=== PATIENT | male | born 1950 | race Caucasian/White ===

== ENCOUNTER → 2019-05-24 | Outpatient (CLI) | payer MEDICARE, OTHER ==
[~2019-05-24] MED LIST: ALOG25TA2 PO; AMLO5TAB10 PO; ASPI-630 PO; DULO30CA2 PO; INSU100V8 SQ; LOSA-73 PO; METO-239 PO
[2019-05-24 14:34] LABS: BASO % 1 % (0-3); EOS # 0.8 x10^3/uL (0.0-0.7); EOS % 11 % (0-3); HEMATOCRIT 41.1 % (39.0-53.0); HEMOGLOBIN 13.4 g/dL (13.0-17.5); LYMPH # 1.4 x10^3/uL (1.0-4.8); LYMPH % 18 % (24-48); MEAN CORPUSCULAR HEMOGLOBIN 26 pg (25-35); MEAN CORPUSCULAR HGB CONC 33 g/dL (31-37); MEAN CORPUSCULAR VOLUME 80 fL (79-100); MONO # 0.6 x10^3/uL (0.0-1.1); MONO % 9 % (0-9); NEUT # 4.6 x10^3/uL (1.8-7.7); NEUT % 61 % (31-73); PLATELET COUNT 344 x10^3/uL (140-400); RED BLOOD COUNT 5.11 x10^6/uL (4.30-5.70); RED CELL DISTRIBUTION WIDTH 14.8 % (11.5-14.5); WHITE BLOOD COUNT 7.5 x10^3/uL (4.0-11.0)
[2019-05-24 15:18] LABS: ALBUMIN 3.8 g/dL (3.4-5.0); ALBUMIN/GLOBULIN RATIO 1.2 (1.0-1.7); CALCIUM 9.2 mg/dL (8.5-10.1); CREATININE 1.1 mg/dL (0.7-1.3); GFR 66.8; TOTAL BILIRUBIN 0.4 mg/dL (0.2-1.0); TOTAL PROTEIN 6.9 g/dL (6.4-8.2)
== END | disposition home or self-care (01) ==
LOC: SURGPAT 13:14
PROVIDERS: ATTEND Neurological Surgery
DX: Z01.818 Encounter for other preprocedural examination (principal)
CPT/HCPCS: 36415; 80053; 85025; 87641

== ENCOUNTER 2019-05-26 10:32 | Observation (INO) | payer MEDICARE, OTHER ==
--- NOTE | 2019-05-25 16:19 | HP ---
ADMIT DATE: 05/20/2019. DATE OF SURGERY: 05/26/2019. HISTORY OF PRESENT ILLNESS: The patient is a pleasant 69-year-old who has difficulty with low back pain on the right side and pain that radiates into his right anterior thigh. The problem has been present for 1-1/2 years. It began spontaneously. He rates his pain as a 7/10. Standing and walking or lying flat increases pain. He says a TENS unit helps him. Last March he underwent physical therapy at the [facility] and felt nothing was helpful. He also had epidural steroid injections, which were not helpful as well as an ablation at the [facility], which he said was helpful for about 3 months. PAST MEDICAL HISTORY: Arthritis, hypertension, kidney stones, sleep apnea, diabetes. PAST SURGICAL HISTORY: Spinal cord stimulator in 2019 and ablation in 2018. Laminectomy in 1981 and gastric band in 2011. FAMILY HISTORY: Diabetes and heart disease. 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 . Rarely exercises. Denies tobacco use. Drinks alcohol 1-2 times per month. ALLERGIES: LISINOPRIL. CURRENT MEDICATIONS: Buspirone, insulin, duloxetine, naproxen, amlodipine besylate, losartan, potassium, ropinirole, alogliptin, benzonatate, and tizanidine. REVIEW OF SYSTEMS: A 12-point review of systems was obtained and is noncontributory except for that mentioned above. PHYSICAL EXAMINATION: NEUROSURGERY EXAMINATION: GENERAL APPEARANCE: Alert, pleasant, no acute distress. HEAD: Normocephalic and atraumatic. SKIN: Warm and dry. MUSCULOSKELETAL: Lumbar paraspinal muscle bulk is normal, restricted range of motion of the lumbar spine, [id number] tenderness of the lower lumbar spine with palpation, normal range of motion of the lower extremities bilaterally. EXTREMITIES: No clubbing, cyanosis or edema. NEUROLOGIC: Alert and oriented x 3, normal recent and remote memory. Strength 5/5 in bilateral lower extremities except for the right quadriceps, which is a 4+/5. Sensory was intact to light touch in bilateral lower extremities, reflexes were present and symmetric in lower extremities bilaterally, negative straight leg raising bilaterally, normal gait. IMAGING: I reviewed a lumbar MRI scan from 11/17/2018. On that study at L2-L3, there is a moderately severe lumbar spinal stenosis at L3-L4, there is severe central canal stenosis. At L4-L5, there is a right lateral recess and subarticular narrowing along with an element of foraminal narrowing. ASSESSMENT: Spinal stenosis, lumbar region with neurogenic claudication. PLAN: The patient has neurogenic claudication from spinal stenosis at L2-L3 and L3-L4. He has right-sided canal narrowing at L4-L5, which does extend in the proximal foramen. At this point, my feeling is that the symptoms most accurately measure stenosis and nerve root compression at L2-L3 and L3-L4. I have recommended a right direct laminectomy at those levels. I explained to him in the future, he may require further surgery if the problems at L4-L5 become symptomatic. He understands. He understands the surgery including the technique, risk and expected postoperative course. He would like to go ahead with surgery. We will make the arrangements. CURTIS WAGNER MD DR: KIERA/hattie JOB#: [id number] / [id number] [place]
[~2019-05-26] VITALS: Ht 188 cm; Wt 128.6 kg
[~2019-05-26 10:32] MED LIST changes: +BACITRACIN 50,000 UNIT in IV NORMAL SALINE 1000ML BAG 1,000 ML IRR ONE; +BUPIVACAINE-EPI 0.5%-1:200000 MPF 30 ML VIAL. ONE; +GELATIN SPONGE SIZE 100. ONE; +HYDROmorphone 2 MG/ML VIAL IV PRN; +IV RINGERS,LACTATED 1000ML 1,000 ML IV SCH; +KETOROLAC 60 MG/2 ML VIAL. ONE; +MORPHINE SULFATE 2 MG/ML VIAL. IV PRN; +ONDANSETRON PF 4 MG/2 ML VIAL. IV PRN; +PROCHLORPERAZINE 10 MG/2 ML VIAL. IV PRN; +THROMBIN TOPICAL 20,000 UNIT SPRAY.SYRN KIT TP ONE; +ceFAZolin SODIUM 3 GM in IV DEXTROSE 5% 100ML 100 ML IV PRN; +fentaNYL PF VIAL 100 MCG/2 ML VIAL IV PRN
[2019-05-26] MEDS ORDERED: INSULIN LISPRO 100 UNIT/ML 3ML VIAL for OP,RR ONLY. SQ PRN (10:45)
[2019-05-26] MEDS ORDERED: PROPOFOL 100 ML IV ONE (10:47)
[2019-05-26] MEDS ORDERED: GLYCOPYRROLATE 1 MG/5 ML VIAL. ONE (10:53)
[2019-05-26] MEDS ORDERED: NEOSTIGMINE METHYLSULFATE 5 MG/5 ML SYRINGE. ONE (10:54)
[2019-05-26] MEDS ORDERED: MIDAZOLAM HCL/PF 2 MG/2 ML VIAL. ONE (10:54)
[2019-05-26] MEDS ORDERED: REMIFENTANIL 2 MG VIAL. IV ONE (10:54)
[2019-05-26] MEDS ORDERED: fentaNYL PF VIAL 100 MCG/2 ML VIAL ONE (10:54)
[2019-05-26] MEDS ORDERED: ROCURONIUM 50 MG/5 ML VIAL. ONE (10:54)
[2019-05-26] MEDS ORDERED: PHENYLEPHRINE 10 MG/ML VIAL. ONE ×2 (10:57→15:30)
[2019-05-26] MEDS ORDERED: DEXAMETHASONE SOD PHOS 4 MG/ML VIAL ONE (10:59)
[2019-05-26] MEDS ORDERED: PROPOFOL 20 ML IV ONE (10:59)
[2019-05-26] MEDS ORDERED: ONDANSETRON PF 4 MG/2 ML VIAL. ONE (10:59)
[2019-05-26] MEDS ORDERED: LIDOCAINE 2% PF 5 ML VIAL. ONE (10:59)
[2019-05-26] MEDS ORDERED: GELATIN SPONGE SIZE 100. TP ONE (13:21)
[2019-05-26] MEDS ORDERED: KETOROLAC 60 MG/2 ML VIAL. INJ ONE (13:21)
[2019-05-26] MEDS ORDERED: THROMBIN TOPICAL 20,000 UNIT SPRAY.SYRN KIT TP ONE (13:21)
[2019-05-26] MEDS ORDERED: BUPIVACAINE-EPI 0.5%-1:200000 MPF 30 ML VIAL. INJ ONE (13:21)
[2019-05-26] MEDS ORDERED: POTASSIUM CL 20MEQ-0.45% NACL 1,000 ML IV SCH (14:40)
[2019-05-26] MEDS ORDERED: MAGNESIUM HYDROXIDE 2,400 MG/30 ML ORAL.SUSP. PO PRN (14:45)
[2019-05-26] MEDS ORDERED: ACETAMINOPHEN 325 MG TABLET. PO PRN (14:45)
[2019-05-26] MEDS ORDERED: CALCIUM CARBONATE 500 MG TAB.CHEW PO PRN (14:45)
[2019-05-26] MEDS ORDERED: diphenhydrAMINE 50 MG/ML VIAL IV PRN (14:45)
[2019-05-26] MEDS ORDERED: MAG HYDROX/ALUMINUM HYD/SIMETH 30 ML ORAL.SUSP PO PRN (14:45)
[2019-05-26] MEDS ORDERED: NALOXONE 0.4 MG/ML VIAL. IV PRN (14:45)
[2019-05-26] MEDS ORDERED: METHOCARBAMOL 750 MG TABLET PO PRN (14:45)
[2019-05-26] MEDS ORDERED: fentaNYL PF VIAL 100 MCG/2 ML VIAL IVP PRN (14:45)
[2019-05-26] MEDS ORDERED: diphenhydrAMINE HCL 25 MG CAPSULE PO PRN (14:45)
[2019-05-26] MEDS ORDERED: DEXTROSE 50% 25 GM / 50ML DISP.SYRIN. IV PRN (14:45)
[2019-05-26] MEDS ORDERED: 0.9 % SODIUM CHLORIDE 10 ML DISP.SYRIN. IV PRN (14:45)
[2019-05-26] MEDS ORDERED: REMIFENTANIL 1 MG VIAL. IV ONE (15:22)
[2019-05-26] MEDS ORDERED: PROPOFOL 50 ML IV ONE (15:40)
[2019-05-26] MEDS: HYDROcodone/APAP 5/325MG 1 TAB TABLET PO PRN (18:28)
[2019-05-26 19:00] VITALS: BP 138/98
[2019-05-26] MEDS: DOCUSATE SODIUM 100 MG CAPSULE. PO SCH (20:17)
[2019-05-26] MEDS ORDERED: INSULIN GLARGINE SYRINGE. SQ SCH (21:00)
[2019-05-26 23:00] VITALS: BP 134/80
[2019-05-27] MEDS: HYDROcodone/APAP 5/325MG 1 TAB TABLET PO PRN ×3 (02:00→13:02)
[2019-05-27 07:52] VITALS: BP 146/87
[2019-05-27] MEDS: DOCUSATE SODIUM 100 MG CAPSULE. PO SCH (08:24)
[2019-05-27] MEDS ORDERED: LINAGLIPTIN 5 MG TABLET PO SCH (09:00)
[2019-05-27] MEDS ORDERED: LOSARTAN POTASSIUM 50 MG TABLET. PO SCH (09:00)
[2019-05-27] MEDS ORDERED: ASPIRIN CHEWABLE 81 MG TABLET. PO SCH (09:00)
[2019-05-27] MEDS ORDERED: METOPROLOL SUCC 24HR ER 25 MG TAB.ER.24H. PO SCH (09:00)
[2019-05-27] MEDS ORDERED: amLODIPine BESYLATE 5 MG TABLET PO SCH (09:00)
[2019-05-27] MEDS ORDERED: DULoxetine HCL 30 MG CAPSULE.DR PO SCH (09:00)
[2019-05-27 11:24] VITALS: BP 116/84
[2019-05-27] MEDS ORDERED: HYDR-2761 PO (12:18)
[2019-05-27] MEDS ORDERED: DOCU-153 PO (12:18)
--- NOTE | 2019-05-27 12:19 | DISCH ---
DISCHARGE INSTRUCTIONS Condition on Discharge Condition on Discharge: Stable Activity After Discharge Activity Instructions for Disc: Activity as tolerated, Avoid exertion Other activity instructions: no driving for a week Bathing Instructions: Shower-keep dressing dry Diet after Discharge Additional Diet Restrictions: resume home diet Wound Incision Care Wound/Incision Care: Ice to area for comfort Other wound/incision instructi: may remove dressing in 48 hours if dry then may shower, no soaking Contacting the DRDeborah after DC Call your doctor for: Concerns you may have Follow-Up Follow up with: Dr. Wagner's nurse in 2 weeks [phone] CURTIS WAGNER MD May 27, 2019 12:19
--- NOTE | 2019-05-30 15:07 | PATHOLOGY ---
[facility] Accession Number: [id number] . 01 Material submitted: . vertebral column - LUMBAR DECOMPRESSION . 01 Clinical history: . Lumbar stenosis with neurogenic claudication. . 02 Diagnosis: Segments of fibrocartilaginous, fibroadipose, and skeletal muscle tissue and bone, lumber decompression: - Degenerative changes of fibrocartilaginous tissue. ([facility]:jeni; 05/30/2019) R 05/30/2019 1220 Local . 02 Comment: There is no evidence of an acute inflammatory process or malignancy. ([facility]:jeni; 05/30/2019) . 02 Electronically signed: . Ty Jaimes MD, Pathologist NPI- [id number] . 01 Gross description: . Received in formalin labeled "Mikael Mendieta, lumbar decompression" is a 6.0 x 4.1 x 1.3 cm aggregate of johnson-brown and johnson-white rubbery and gritty soft tissue and bone. Steam Drier Operator tissue is submitted in cassette A1 following decalcification. ([facility] [place]; 05/29/2019) [facility] 05/30/2019 1218 Local . 02 Pathologist provided ICD-10: M51.36 . 02 CPT . 906099, [id number] Specimen Comment: A courtesy copy of this report has been sent to [phone] Specimen Comment: Report sent to Performed at: [facility] [address], [place] [id number] MD Ronnie Westbrook MD Phone: [phone] Performed at: [facility] [address] [place], [place] [id number] MD Ty Jaimes MD Phone: [phone]
--- NOTE | 2019-05-30 15:22 | OP ---
DATE OF SURGERY: 05/26/2019 PREOPERATIVE DIAGNOSES: Lumbar spinal stenosis, L2-L3, L3-L4, with right lumbar radiculopathy. POSTOPERATIVE DIAGNOSES: Lumbar spinal stenosis, L2-L3, L3-L4, with right lumbar radiculopathy. PROCEDURES PERFORMED: Right direct laminectomy, L2-L3, L3-L4, with decompression of dura and nerve root. The operation was done with EMG monitoring, SSEP monitoring, fluoroscopy, and microscopic dissection. SURGEON: Meng Wagner M.D. PROPERTY MANAGEMENT INTERN: HORTENCIA Mckinney, assisted with the surgery. She assisted with the exposure and decompression at both levels as well as closure. INDICATIONS FOR PROCEDURE: The patient is a pleasant 69-year-old man, who is having difficulty with low back and right leg pain. On imaging studies, he was found to have significant stenosis at L2-L3 and L3-L4 and I recommended lumbar surgery. He does have some problems at L4-L5, but I felt that based on his examination, the problems at L2-L3 and L3-L4 were most likely responsible for his pain and I felt that we should focus on these levels. He understood the surgery and the risks. He understood the technique of the operation. He understood the postoperative course and wished to go ahead. DESCRIPTION OF PROCEDURE: Following general endotracheal anesthesia, the patient was placed prone on the Serjio table. Lumbar region was prepped and draped in standard fashion. MIKE hose and AV impulse boots were applied for deep vein thrombosis prophylaxis. A microscope was draped. Fluoroscopy was draped and brought into the field. Monitoring was established. Ancef 2 grams were given less than 1 hour prior to initiation of the surgery. Using fluoroscopic guidance, a midline incision was made extending from L2 through L4. I dissected down through the skin and subcutaneous tissues, reflected the paraspinal muscles to the right, and placed self-retaining retractors. I brought in the microscope and through the microscope using microscopic technique beginning at L2-L3, I burred down a very generous hemilaminotomy and then worked up to the midline. I grasped and peeled away very thickened ligamentum flavum, worked well above and below the disc, and performed a partial foraminotomy peeling away the very thickened ligamentum flavum. The disc was firm and no discectomy was warranted. I did coagulate some epidural veins, used bone wax where necessary, and fully decompressed this level. I then went to L3-L4, performed the identical operation at this level with a wide decompression, and I fully decompressed the dura and the nerve roots. Following this I explored carefully, hemostasis was excellent. No discectomy was performed at either level. I irrigated copiously with antibiotic solution. I removed the retractors and obtained hemostasis in the muscle and I closed the wound in layers with absorbable suture. The skin was closed with 4-0 subcuticular stitch. The surgery went very well. There was normal strength in lower extremities in recovery room. The patient noted immediate improvement. I was quite pleased with the surgery. MENG WAGNER MD DR: KIERA/hattie JOB#: [id number] / [id number] [place]
== END 2019-05-27 14:05 | disposition home or self-care (01) ==
LOC: SURG 10:32 → INTOOBSV 16:35 → 4 NORTH 16:35
PROVIDERS: ADMIT Neurological Surgery; ATTEND Neurological Surgery
DX: M48.062 Spinal stenosis, lumbar region with neurogenic claudication (principal); M54.16 Radiculopathy, lumbar region; M19.90 Unspecified osteoarthritis, unspecified site; I10 Essential (primary) hypertension; E11.9 Type 2 diabetes mellitus without complications; G47.30 Sleep apnea, unspecified; Z87.442 Personal history of urinary calculi; Z82.49 Family history of ischemic heart disease and other diseases of the circulatory system; Z83.3 Family history of diabetes mellitus; Z98.890 Other specified postprocedural states
CPT/HCPCS: 36415; 63047; 76000; 82962; 84132; 88304; 88311; 97116; 97162; 97530; A7015; G0378; G0379; J1100; J1815; J1885; J2250; J2370; J2405; J2704; J2710; J3010; J3490; J7030; J7120